=== PATIENT | female | born 1975 | race Caucasian/White ===

== ENCOUNTER 2020-11-15 18:07 | Emergency (ER) | payer OTHER, BC ==
--- NOTE | 2020-11-15 18:25 | EDM.PDOC ---
ED HPI GENERAL MEDICAL PROBLEM - General Stated Complaint: FISH HOOK IN FINGER Time Seen by Provider: 11/15/20 18:20 Source of Information: Reports: Patient History Limitations: Reports: No Limitations - History of Present Illness INITIAL COMMENTS - FREE TEXT/NARRATIVE: Patient was out fishing, she was wearing gloves and unfortunately managed to get a fish hook stuck in her left index finger. normal sensation, cut off the rest of the lure. tetanus in 2019 Onset: Today Duration: Hour(s): Location: Reports: Lower Extremity, Left Quality: Reports: Stabbing Severity: Moderate Improves with: Reports: None Worsens with: Reports: None - Related Data Allergies Allergy/AdvReac Type Severity Reaction Status Date / Time No Known Allergies Allergy Verified 11/15/20 18:32 Home Meds: Home Meds . [No Known Home Meds] 11/15/20 [History] Review of Systems - Review of Systems Review Of Systems: Comprehensive ROS is negative, except as noted in HPI. Constitutional: Reports: No Symptoms Eyes: Reports: No Symptoms Ears: Reports: No Symptoms Nose: Reports: No Symptoms Mouth/Throat: Reports: No Symptoms Respiratory: Reports: No Symptoms Cardiovascular: Reports: No Symptoms Genitourinary: Reports: No Symptoms Musculoskeletal: Reports: Other (fish hook in the left index finger) Skin: Reports: No Symptoms Neurological: Reports: No Symptoms Psychiatric: Reports: No Symptoms ED EXAM, GENERAL - Physical Exam Exam: See Below Exam Limited By: No Limitations General Appearance: Alert, WD/WN, No Apparent Distress Eye Exam: Bilateral Eye: EOMI, PERRL Throat/Mouth: Normal Lips, Normal Oropharynx Head: Atraumatic, Normocephalic Neck: Supple Respiratory/Chest: No Respiratory Distress, Normal Breath Sounds Cardiovascular: Regular Rate, Rhythm, No Edema Extremities: Other (left index finger with fish hook in the left index finger near the dip. normal sensation distally. no bleeding. ) Neurological: Alert, Oriented, Normal Cognition ED TRAUMA EXTREMITY PROCEDURES - Foreign Body Removal Performing Doctor:: Shanon Coleman Foreign Body Other Location Comment:: left index finger Anesthesia Type: Other (see below) (digital, left index finger) Anesthesia Other:: 3 cc of lidocaine, MCP volar block, anesthesia achieved Findings:: after anesthesia achieved, able to advance the hook through the finger without problems. washed with soap and water. antibiotic ointment and bandage applied Complications:: No Course - Vital Signs Last Recorded V/S: Last Vital Signs Temp 37.1 C 11/15/20 18:15 Pulse 87 11/15/20 18:15 Resp 16 11/15/20 18:15 BP 127/75 11/15/20 18:15 Pulse Ox 98 11/15/20 18:15 - Orders/Labs/Meds Meds: Medications Discontinued Medications Generic Name Dose Route Start Last Admin Trade Name Sundeep PRN Reason Stop Dose Admin Lidocaine HCl 5 ml 11/15/20 18:15 11/15/20 18:27 Lidocaine 1% 5 Ml Sdv INJECT 11/15/20 18:16 5 ml ONETIME ONE Administration Departure - Departure Time of Disposition: 18:44 Disposition: Home, Self-Care 01 Clinical Impression: Fish hook injury of finger - Discharge Information *PRESCRIPTION DRUG MONITORING PROGRAM REVIEWED*: Not Applicable *COPY OF PRESCRIPTION DRUG MONITORING REPORT IN PATIENT MEHRDAD: Not Applicable Referrals: Denisha Davila ASSISTANT REFINERY OPERATOR [Primary Care Provider] - Additional Instructions: watch for signs of infection, present to medical provider for redness or drainage Sepsis Event Note (ED) - Focused Exam Vital Signs: Vital Signs Temp Pulse Resp BP Pulse Ox 11/15/20 18:15 37.1 C 87 16 127/75 98
== END 2020-11-15 18:48 | disposition home or self-care (01) ==
LOC: VM.ED 18:07
DX: S60.451A Superficial foreign body of left index finger, initial encounter (principal); W45.8XXA Other foreign body or object entering through skin, initial encounter
CPT/HCPCS: 64450; 99283; 99283-25